=== PATIENT | female | born 1965 | race Caucasian/White ===

== ENCOUNTER 2021-07-24 12:16 | Outpatient (REF) | payer OTHER, SELFPAY ==
--- NOTE | 2021-07-24 14:59 | MHC.AU.ANR ---
Adult Audiological Evaluation Date of Visit: 07/24/21 Reason for Appointment: Audiological evaluation due to concern for decreased hearing. Patient has noticed a gradual decrease in hearing. She notes that she is asking for repetition more often, and noticed trouble hearing voice on the TV, especially if there is background noise. She also reports tinnitus bilaterally, which has been mild for the past 4-5 years but seems to have gotten worse in the past 6-9 montths. 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 She notes that she often gets ear infections when she is sick with a cold, bronchitis, etc. 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, 20 years Medical History: Medical History: Head Injury, Migraines Medical History (Other): Head injury in her early 20s Allergies: Codeine, red wine Medication List: Albuterol sulfate, Meloxicam 15 mg, Cholecalciferol (Vitamin D) 2000 unit capsules, Cetirizine 10 mg Otoscopy: Right Ear: Occluding cerumen, unable to view TM Left Ear: Occluding cerumen, unable to view TM Tympanometry: Tympanometry performed due to: To assess integrity of the middle ear system Right Ear: Normal Middle Ear System (Type A) Left Ear: Normal Middle Ear System (Type A) Hearing Evaluation: Transducer(s) Used: Circumaural Headphones, Bone Conduction Method: Conventional Audiometry Stimuli Used: Pure Tones Right Ear: Description of Hearing: Normal hearing from 250-4000 Hz, sloping to a mild hearing loss from 4820-1970 Hz. Left Ear: Description of Hearing: Normal hearing from 250-6000 Hz, sloping to a mild hearing loss from at 8000 Hz. Speech Recognition Threshold (SRT): Method Used: Monitored Live Voice Stimuli Used: Spondee Words Right Ear: 20 dBHL Left Ear: 20 dBHL Word Discrimination: Method: Recorded Lists Word Lists Used: NU-6 Right Ear: 100% at 60 dBHL Left Ear: 100% at 60 dBHL Recommendations: No further audiological action is indicated at this time. Audiological re-evaluation if changes are noted. Amplification is not warranted at this time. Hearing protection should be used when around loud noise. Recommend earwax removal either with the use of earwax softening drops and a ear syringe to flush, or by a physician. Diagnosis: Primary Diagnosis: H90.3 Bilateral Sensorineural Hearing Loss Secondary Diagnosis: H61.23 Impacted Cerumen, Bilateral Services Performed: Services Performed: Comprehensive Audiological Evaluation (CPT 80986) Tympanometry (CPT 14207) Signature: Provider: Lashawn Panchal, CCC-A
== END 2021-07-24 12:17 | disposition home or self-care (01) ==
LOC: HO.SH 12:16
PROVIDERS: Visit Provider Pediatrics
DX: H90.3 Sensorineural hearing loss, bilateral (principal)
CPT/HCPCS: 92557; 92567